=== PATIENT | female | born 1975 ===

== ENCOUNTER 2016-12-17 16:39 | Emergency (ER) | payer SELFPAY ==
[2016-12-17 16:50] VITALS: BP 116/76
[2016-12-17 17:38] LABS: Basophils % (Auto) 0.2 % (0.0-1.8); Hematocrit 37.1 % (30.3-42.9); Hemoglobin 12.4 gm/dl (10.1-14.3); Mean Corpuscular HGB Conc 34 % (30-34); Mean Corpuscular Hemoglobin 30 pg (28-32); Mean Corpuscular Volume 90 fl (79-97); Platelet Count 368 K/mm3 (140-440); Red Blood Count 4.13 M/mm3 (3.65-5.03); Red Cell Distribution Width 13.4 % (13.2-15.2); White Blood Count 16.4 K/mm3 (4.5-11.0)
[2016-12-17 18:26] LABS: Bilirubin,Urine NEG (Negative); Blood,Urine SM (Negative); Ketones,Urine 20 mg/dL (Negative); Leukocyte Esterase,Urine LG (Negative); Mucus,Urine FEW /HPF; Nitrite,Urine NEG (Negative)
[2016-12-17 18:27] LABS: Anion Gap 19 mmol/L; Blood Urea Nitrogen 8 mg/dL (7-17); Carbon Dioxide 27 mmol/L (22-30); Chloride 90.3 mmol/L (98-107); Glucose 98 mg/dL (65-100); Potassium 3.5 mmol/L (3.6-5.0); Sodium 133 mmol/L (137-145)
== END 2016-12-17 19:40 | disposition left against medical advice (07) ==
LOC: ED 16:39
DX: R51 Headache (principal); R11.2 Nausea with vomiting, unspecified; R50.9 Fever, unspecified; M19.90 Unspecified osteoarthritis, unspecified site; F17.200 Nicotine dependence, unspecified, uncomplicated; F12.90 Cannabis use, unspecified, uncomplicated; Z86.73 Personal history of transient ischemic attack (TIA), and cerebral infarction without residual deficits; Z53.21 Procedure and treatment not carried out due to patient leaving prior to being seen by health care provider
CPT/HCPCS: 36415; 80048; 81001; 85025